=== PATIENT | male | born 1955 | race Caucasian/White ===

== ENCOUNTER 2019-01-02 10:15 | Emergency (ER) | payer OTHER ==
[2019-01-02 10:28] VITALS: BP 142/101; PULSE 72; TEMP 97.8; BMI 21.8
--- NOTE | 2019-01-02 10:53 | PDOC ---
*Physical Exam - Vital Signs Last Vital Signs Temp Pulse Resp BP Pulse Ox 97.8 F 72 16 142/101 H 98 01/02/19 10:21 01/02/19 10:21 01/02/19 10:21 01/02/19 10:21 01/02/19 10:21 Medical Decision Making - Medical Decision Making 01/02/19 10:52 Mr. Bush is a 63 yo M h/o EtOH abuse presents to ED with complaints of right scrotal swelling and discomfort worsened with ambulation for the past 2 years. 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
--- NOTE | 2019-01-02 12:36 | PDOC ---
History of Present Illness - General Chief Complaint: Pain, Acute Stated Complaint: BOIL ON THE ABD Time Seen by Provider: 01/02/19 10:46 History Source: Patient Exam Limitations: No Limitations - History of Present Illness Travel History: No Initial Comments: 01/02/19 11:37 63-year-old male with history of EtOH abuse presents to ED with complaints of right scrotal swelling and discomfort worsened with ambulation for the past 2 years without worsening symptoms. 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 Patient states has not followed up with anyone for the symptoms above and so decided to come to the ER today when he mentioned this to his sister. Timing/Duration: reports: constant Quality: reports: mild Abdominal Pain Onset Location: reports: other Pain Radiation: reports: no radiation Activities at Onset: reports: none Aggravating Factors: improves with: Movement Alleviating Factors: improves with: Rest Past History - Travel Traveled outside of the country in the last 30 days: No Close contact w/someone who was outside of country & ill: No - Past Medical History Allergies/Adverse Reactions: Allergies Allergy/AdvReac Type Severity Reaction Status Date / Time No Known Allergies Allergy Verified 01/02/19 10:28 Home Medications: Ambulatory Orders NK [No Known Home Medication] 01/02/19 - Suicide/Smoking/Psychosocial Hx Smoking History: Current some day smoker Have you smoked in the past 12 months: No Information on smoking cessation initiated: No Hx Alcohol Use: Yes Drug/Substance Use Hx: No Patient Lives Alone: Yes Lives with/in: lives alone Review of Systems - Review of Systems Able to Perform ROS?: Yes Constitutional: No: Symptoms Reported HEENTM: No: Symptoms Reported Respiratory: No: Symptoms reported Cardiac (ROS): No: Symptoms Reported ABD/GI: No: Symptoms Reported : Yes: Testicular Mass, Testicular Swelling Musculoskeletal: No: Symptoms Reported Integumentary: No: Symptoms Reported Neurological: No: Symptoms reported Endocrine: No: Symptoms Reported Hematologic/Lymphatic: No: Symptoms Reported *Physical Exam - Vital Signs Last Vital Signs Temp Pulse Resp BP Pulse Ox 97.8 F 72 16 142/101 H 98 01/02/19 10:21 01/02/19 10:21 01/02/19 10:21 01/02/19 10:21 01/02/19 10:21 - Physical Exam General Appearance: Yes: Nourished, Appropriately Dressed, Alcohol on Breath. No: Apparent Distress Respiratory/Chest: positive: Lungs Clear, Normal Breath Sounds. negative: Respiratory Distress, Accessory Muscle Use Cardiovascular: positive: Regular Rhythm, Regular Rate. negative: Murmur Gastrointestinal/Abdominal: positive: Soft. negative: Tenderness Male Genitalia: positive: other (Noted approximately 10 x 5 cm enlarged soft mass extending from the right suprapubic region rating to his right testicle. Penis intact. No discharge.) Musculoskeletal: negative: CVA Tenderness Extremity: positive: Normal Capillary Refill. negative: Pedal Edema Integumentary: positive: Normal Color, Warm, Moist Neurologic: positive: Motor Strength 5/5 (ambulatory) ED Treatment Course - RADIOLOGY Radiology Studies Ordered: Category Date Time Status SCROTUM AND CONTENTS US [US] Stat Ultrasound 01/02/19 11:02 Ordered SOFT TISSUE ABDOMEN US [US] Stat Ultrasound 01/02/19 11:46 Ordered Medical Decision Making - Medical Decision Making 01/02/19 12:02 Chief complaint. Mass his right testicle worse with movement over the past 2 years without worsening symptoms recently. No follow-up prior to today's visit Exam. Patient with large semi-firm semi-soft mass to right inguinal extending to right testicular region. Testicles nontender no penile drainage Plan: Urine culture and urinalysis and ultrasound 01/02/19 13:46 Laboratory Tests 01/02/19 12:16 Urine Ketones Negative Urine Blood Negative Urine Nitrite Negative Urine Bilirubin Negative Ur Leukocyte Esterase Negative Ultrasound shows a herniating bowel loop with peristalsis. Right epididymal head body and tail measuring 10 8 and 3 mm respectively. The right testicle measures 3.7 x 2.1 with a homogeneous echotexture. Venous spectra waveforms documented no arterial flow could be documented. On the color Doppler images there is significant paucity of the color Doppler flow relative to the left. Small to moderate right hydrocele is present. The left testicle measures 4.2 x 2 with normal color Doppler flow present. Will discuss case with urology in regards to possible right testicular torsion. patient has normal skin color to area, minimal tenderness to right testicle, and symmetric warmth. 01/02/19 14:04 Case discussed with urologist Dr. Hernandez who states since patient has no testicular pain or worsening discomfort over the past 2 years, Pt may f/u w/ surgeon. Consult given *DC/Admit/Observation/Transfer Diagnosis at time of Disposition: Hernia - Discharge Dispostion Disposition: HOME Condition at time of disposition: Good - Referrals Referrals: Helio Fuller MD [Staff Physician] - - Patient Instructions Printed Discharge Instructions: DI for Groin Hernia Additional Instructions: Please call the referred surgeon for consultation. Please avoid lifting items over 10 pounds. Use your legs and avoid lifting items over 10 pounds. If symptoms worsen including severe testicular pain, difficulty urinating, or skin discoloration, please return to the emergency room immediately. Print Language: CYMRAES - Post Discharge Activity
[2019-01-02 12:39] LABS: PH,URINE 7.5 (5.0-8.0); URINE APPEARANCE CLEAR; URINE BILIRUBIN NEGATIVE (NEGATIVE); URINE COLOR YELLOW; URINE GLUCOSE (UA) NEGATIVE (NEGATIVE); URINE KETONE NEGATIVE (NEGATIVE); URINE LEUK ESTERASE NEGATIVE (NEGATIVE); URINE NITRITE NEGATIVE (NEGATIVE); URINE PROTEIN NEGATIVE (NEGATIVE)
== END 2019-01-02 14:13 | disposition home or self-care (01) ==
LOC: JER 10:15
DX: K40.90 Unilateral inguinal hernia, without obstruction or gangrene, not specified as recurrent (principal)
CPT/HCPCS: 76705-TC; 76870-TC; 81003; 87086; 99282-25

== ENCOUNTER 2019-03-28 15:40 | Inpatient (IN) | payer OTHER ==
--- NOTE | 2019-03-28 17:27 | PDOC ---
History of Present Illness - General Chief Complaint: Pain Stated Complaint: GROIN PAIN Time Seen by Provider: 03/28/19 17:26 - History of Present Illness Initial Comments: 03/28/19 18:23 63 y/o M with hx of right inguinal hernia presenting to the ED with right testicular pain. He was seen in the ED 01/02/2019 for the same complaint and scrotal U/S at the time showed decreased Doppler flow, right and left hydrocele and torsion could not be ruled out at the time. He was discharged with instructions to follow up with surgery which he wasn't able to do. This current episode of pain began today and is sharp and non-radiating. Attempts to reduce his hernia have been unsuccessful.He has had 2 episodes of non-bloody emesis since yesterday as well as dysuria. His last bowel movement was yesterday and he denies melena or diarrhea. Past History - Past Medical History Allergies/Adverse Reactions: Allergies Allergy/AdvReac Type Severity Reaction Status Date / Time No Known Allergies Allergy Verified 01/02/19 10:28 Home Medications: Ambulatory Orders NK [No Known Home Medication] 01/02/19 COPD: No - Suicide/Smoking/Psychosocial Hx Smoking History: Current every day smoker Have you smoked in the past 12 months: No Information on smoking cessation initiated: No Hx Alcohol Use: Yes Drug/Substance Use Hx: No Review of Systems - Review of Systems All Other Systems: Reviewed and Negative *Physical Exam - Vital Signs Last Vital Signs Temp Pulse Resp BP Pulse Ox 98.2 F 71 18 139/84 100 03/28/19 16:01 03/28/19 16:01 03/28/19 16:01 03/28/19 16:01 03/28/19 16:01 - Physical Exam General Appearance: Yes: Nourished, Appropriately Dressed Neck: positive: Supple Respiratory/Chest: positive: Lungs Clear, Normal Breath Sounds. negative: Respiratory Distress Gastrointestinal/Abdominal: positive: Normal Bowel Sounds, Soft, Hernia Male Genitalia: positive: inguinal hernia, other (Right sided testicle swollen and hard with what appears to be loops of bowel herniating into scrotal sac. unable to illicit cremasteric reflex bilaterally/reduce hernia). negative: normal genitalia, hematuria Musculoskeletal: positive: Normal Inspection. negative: CVA Tenderness Extremity: positive: Normal Inspection, Normal Range of Motion. negative: Coldness, Cyanosis, Swelling Integumentary: positive: Normal Color, Dry, Warm. negative: Jaundice Neurologic: positive: Fully Oriented, Alert, Normal Mood/Affect, Normal Response ED Treatment Course - LABORATORY CBC & Chemistry Diagram: 03/28/19 18:16 03/28/19 18:16 Medical Decision Making - Medical Decision Making 03/28/19 18:39 63 y/o M hx of right inguinal hernia presenting with right testicular pain. Considering possible incarceration Labs/Imaging/Meds morphine for pain cbc,cmp, lactate, type and screen, coags Dr. Mcnair consulted by Dr. Garces and is coming to see the patient. Did not think scrotal U/S would be necessary due to findings on physical exam and previous ultrasound from January. 03/28/19 20:41 Surgeon has seen patient. Admission request put through to [facility] through [facility]. CT abdomen with IV contrast ordered *DC/Admit/Observation/Transfer Diagnosis at time of Disposition: Hernia, Right inguinal hernia - Discharge Dispostion Condition at time of disposition: Stable Decision to Admit order: Yes - Referrals - Patient Instructions - Post Discharge Activity
[2019-03-28] MEDS ORDERED: morphine CARPU-JECT 4 MG/1 ML DISP.SYRIN IVPUSH ONE (18:22)
[2019-03-28] MEDS ORDERED: SODIUM CHLORIDE 0.9% 1000 ML INFUS.BAG IV ONE (18:22)
--- NOTE | 2019-03-28 18:22 | PDOC ---
Documentation entered by Tahmina Rivero SCRIBE, acting as scribe for Brittany Garces MD. Brittany Garces MD: This documentation has been prepared by the Mat ramos Lincy, SCRIBE, under my direction and personally reviewed by me in its entirety. I confirm that the documentation accurately reflects all work, treatment, procedures, and medical decision making performed by me. Attending Attestation - Resident Resident Name: Pb Jones - ED Attending Attestation I have performed the following: I have examined & evaluated the patient, The case was reviewed & discussed with the resident, I agree w/resident's findings & plan, Exceptions are as noted - HPI HPI: 03/28/19 18:38 The patient is a 63-year-old male with a past medical history significant for a hernia presents to the emergency department with right testicular pain with swelling. The patient reports a 2-year history right inguinal hernia, which protrudes out intermittently. The patient reports hes able to reduce the hernia while laying on the side. The patient reports around noon today the hernia bulged out, and he was unable to reduce it. The patient reports associated symptoms of nausea and 2 episodes of vomiting. The patient reports taking Tylenol for the pain without relief. Denies fever, chills, diarrhea. The patient was seen at the ER on January 2019, and he was referred to surgery. The patient denies follow up secondary to the office being far away. Allergies: NKDA - Physicial Exam PE: 03/28/19 18:19 awake alert lungs clear bilaterally heart rrr no mrg abd soft nt nd ext wwp. right scrotum inlarged. palp hernia, tense. skin overlying no erythema, no warmth. ttp on trying to reduce, unreducable. ext wwp no edema. nuero alert oriented x 3. - Medical Decision Making 03/28/19 18:21 63 yo male with no pmhx h/o inguinal hernia, here with incarcerated inguinal hernia. plan pre op labs, pain control NPO iv hydration lactic acid. pt placed in head down, unable to reduce. will give pain medicaion. surgery consulted. dr jose blanco. awaiting call back. us testicle ordered. ua basic labs. 03/28/19 18:[address] Mcnair. 03/28/19 20:[address] Mcnair, confirmed hernia. [facility]. will obtain cT a/p r/o complications of hernia. Heart Score/ECG Review #1 General ECG Interpretation: Sinus Rhythm, Normal Rate (65), Normal Intervals, No acute ischemic changes
[2019-03-28] MEDS ORDERED: morphine SULFATE 4 MG/ML VIAL ONE (18:28)
[2019-03-28 18:35] LABS: BASO % 0.7 % (0-2.0); EOS % 1.2 % (0-4.5); HEMATOCRIT 36.1 % (35.4-49); HEMOGLOBIN 11.9 GM/dL (11.7-16.9); LYMPH % 21.2 % (8-40); MCH 32.3 pg (25.7-33.7); MCHC 32.9 g/dl (32.0-35.9); MEAN PLT VOLUME 6.6 fl (7.5-11.1); MONO % 8.9 % (3.8-10.2); PLATELET COUNT 341 K/MM3 (134-434); RBC 3.68 M/mm3 (4.00-5.60); RDW 13.3 % (11.9-15.9); WHITE BLOOD COUNT 6.8 K/mm3 (4.0-10.0)
[2019-03-28 18:37] LABS: URINE APPEARANCE CLEAR; URINE BILIRUBIN NEGATIVE (NEGATIVE); URINE COLOR YELLOW; URINE GLUCOSE (UA) NEGATIVE (NEGATIVE); URINE KETONE TRACE (NEGATIVE); URINE LEUK ESTERASE NEGATIVE (NEGATIVE); URINE NITRITE NEGATIVE (NEGATIVE); URINE PROTEIN NEGATIVE (NEGATIVE)
[2019-03-28 18:57] LABS: ALBUMIN 3.3 g/dl (3.4-5.0); BILIRUBIN,TOTAL 0.4 mg/dL (0.2-1); BLOOD UREA NITROGEN 9.6 mg/dL (7-18); CALCIUM 8.6 mg/dL (8.5-10.1); CREATININE 0.6 mg/dL (0.55-1.3); POTASSIUM 3.8 mmol/L (3.5-5.1)
[2019-03-28 19:00] LABS: INR 1.03 (0.83-1.09); PROTHROMBIN TIME (PATIENT) 12.2 SEC (9.7-13.0)
[2019-03-28 19:03] LABS: ACTIVATED PTT 34.5 SECONDS (25.2-36.5)
[2019-03-28] MEDS ORDERED: MORPHINE SULFATE 2 MG/ML VIAL IVPUSH PRN (21:07)
[2019-03-28] MEDS: SODIUM CHLORIDE 1,000 ML IV SCH (21:55)
--- NOTE | 2019-03-29 00:27 | PN ---
Teaching Attending Note Name of Resident: Zee Humphreys ATTENDING PHYSICIAN STATEMENT I saw and evaluated the patient. I reviewed the resident's note and discussed the case with the resident. I agree with the resident's findings and plan as documented. SUBJECTIVE: 63-year-old man with 2 yr history of reducible right inguinal hernia c/o sudden pain 03/28 afternoon and found to have irreducible right inguinal hernia. OBJECTIVE: Last Vital Signs Temp Pulse Resp BP Pulse Ox 98.2 F 75 18 127/78 99 03/29/19 00:07 03/29/19 00:07 03/29/19 00:07 03/29/19 00:07 03/29/19 00:07 gen- nad, aaox3, nontoxic heent- at, nc cv -s1+s2+rrr chest clear abd - soft, nt - right irreducible inguinal hernia Abnormal Lab Results 03/28/19 03/28/19 03/28/19 18:16 18:16 18:16 RBC 3.68 L MCV 98.0 H MPV 6.6 L AST 91 H Albumin 3.3 L Urine Ketones Trace H ct scan abd/pelvis appreciated ASSESSMENT AND PLAN: #right irreducible inguinal hernia. Lactate was normal so do not suspect ischemic bowel. Evaluated by Dr. Mcnair. Patient is for urgent surgery. -admit to med/surg -npo -pain control- morphine -pt/ptt -coags -iv fluid hydration -ekg -lactate -scrotal u/s -dvt ppx- scds
--- NOTE | 2019-03-29 04:02 | HP ---
CHIEF COMPLAINT: irreducible inguinal hernia , n/v PCP: HISTORY OF PRESENT ILLNESS: 63 yo M w/ no reported PMH presents to the ED with R testicular pain. Pt has had this inguinal hernia for over 2 years. Pt states whenever he experiences pain and notices the bulging, he massages his scrotum to reduce his hernia. Today, around 2 pm he noticed he was unable to reduce his hernia. The pt also endorses severe pain, nausea, and vomiting. The patient states he is unable to rate his pain because it keeps changing in severity. Pt tried taking over the counter tylenol for the pain without relief. Pt has been seen in the ED in 01/2019 and but has failed outpt f/u. ER course was notable for: (1)CT abdomen (2)pain management (3) Recent Travel: denies PAST MEDICAL HISTORY:denies PAST SURGICAL HISTORY: denies Social History: Smoking:denies Alcohol:denies Drugs: denies Family History: Allergies No Known Allergies Allergy (Verified 01/02/19 10:28) HOME MEDICATIONS: Home Medications Medication Instructions Recorded NK [No Known Home Medication] 01/02/19 REVIEW OF SYSTEMS CONSTITUTIONAL: Absent: fever, chills, diaphoresis, generalized weakness, malaise, loss of appetite, weight change HEENT: Absent: rhinorrhea, nasal congestion, throat pain, throat swelling, difficulty swallowing, mouth swelling, ear pain, eye pain, visual changes CARDIOVASCULAR: Present: irregular heart rate Absent: chest pain, syncope, palpitations, lightheadedness, peripheral edema RESPIRATORY: Absent: cough, shortness of breath, dyspnea with exertion, orthopnea, wheezing, stridor, hemoptysis GASTROINTESTINAL: Present: Nausea, vomiting Absent: abdominal pain, abdominal distension, diarrhea, constipation, melena, hematochezia GENITOURINARY: Present: Scrotal pain Absent: dysuria, frequency, urgency, hesitancy, hematuria, flank pain MUSCULOSKELETAL: Absent: myalgia, arthralgia, joint swelling, back pain, neck pain HEMATOLOGIC/IMMUNOLOGIC: Absent: easy bleeding, easy bruising, lymphadenopathy, frequent infections ENDOCRINE: Absent: unexplained weight gain, unexplained weight loss, heat intolerance, cold intolerance NEUROLOGIC: Absent: headache, focal weakness or paresthesias, dizziness, unsteady gait, seizure, mental status changes, bladder or bowel incontinence PSYCHIATRIC: Absent: anxiety, depression, suicidal or homicidal ideation, hallucinations. PHYSICAL EXAMINATION Vital Signs - 24 hr 03/28/19 03/29/19 16:01 00:07 Temperature 98.2 F 98.2 F Pulse Rate 71 Pulse Rate [ 75 Right Radial] Respiratory 18 18 Rate Blood Pressure 139/84 Blood Pressure 127/78 [Left Arm] O2 Sat by Pulse 100 99 Oximetry (%) GENERAL: Awake, alert, and fully oriented, in no acute distress. HEAD: Normal with no signs of trauma. EYES: Pupils equal, round and reactive to light, extraocular movements intact, sclera anicteric, conjunctiva clear. No lid lag. EARS, NOSE, THROAT: Ears normal, nares patent, oropharynx clear without exudates. Moist mucous membranes. NECK: Normal range of motion, supple without lymphadenopathy, JVD, or masses. LUNGS: Breath sounds equal, clear to auscultation bilaterally. No wheezes, and no crackles. No accessory muscle use. HEART: Regular rate and rhythm, normal S1 and S2 without murmur, rub or gallop. ABDOMEN: Soft, nontender, not distended, normoactive bowel sounds, no guarding, no rebound, no masses. :Scrotum enlarged, R irreducible inguinal hernia. UPPER EXTREMITIES: 2+ pulses, warm, well-perfused. No cyanosis. No clubbing. No peripheral edema. LOWER EXTREMITIES: 2+ pulses, warm, well-perfused. No calf tenderness. No peripheral edema. NEUROLOGICAL: Cranial nerves II-XII intact. Normal speech. SKIN: Warm, dry, normal turgor, no rashes or lesions noted, normal capillary refill. Laboratory Last Values WBC 6.8 K/mm3 (4.0-10.0) 03/28/19 18:16 RBC 3.68 M/mm3 (4.00-5.60) L 03/28/19 18:16 Hgb 11.9 GM/dL (11.7-16.9) 03/28/19 18:16 Hct 36.1 % (35.4-49) 03/28/19 18:16 MCV 98.0 fl (80-96) H 03/28/19 18:16 MCH 32.3 pg (25.7-33.7) 03/28/19 18:16 MCHC 32.9 g/dl (32.0-35.9) 03/28/19 18:16 RDW 13.3 % (11.9-15.9) 03/28/19 18:16 Plt Count 341 K/MM3 (134-434) 03/28/19 18:16 MPV 6.6 fl (7.5-11.1) L 03/28/19 18:16 Absolute Neuts (auto) 4.6 K/mm3 (1.5-8.0) 03/28/19 18:16 Neutrophils % 68.0 % (42.8-82.8) 03/28/19 18:16 Lymphocytes % 21.2 % (8-40) 03/28/19 18:16 Monocytes % 8.9 % (3.8-10.2) 03/28/19 18:16 Eosinophils % 1.2 % (0-4.5) 03/28/19 18:16 Basophils % 0.7 % (0-2.0) 03/28/19 18:16 Nucleated RBC % 0 % (0-0) 03/28/19 18:16 PT with INR 12.20 SEC (9.7-13.0) 03/28/19 18:16 INR 1.03 (0.83-1.09) 03/28/19 18:16 PTT (Actin FS) 34.5 SECONDS (25.2-36.5) 03/28/19 18:16 Sodium 142 mmol/L (136-145) 03/28/19 18:16 Potassium 3.8 mmol/L (3.5-5.1) 03/28/19 18:16 Chloride 106 mmol/L (98-107) 03/28/19 18:16 Carbon Dioxide 28 mmol/L (21-32) 03/28/19 18:16 Anion Gap 9 MMOL/L (8-16) 03/28/19 18:16 BUN 9.6 mg/dL (7-18) 03/28/19 18:16 Creatinine 0.6 mg/dL (0.55-1.3) 03/28/19 18:16 Est GFR (CKD-EPI)AfAm 124.02 03/28/19 18:16 Est GFR (CKD-EPI)NonAf 107.00 03/28/19 18:16 Random Glucose 95 mg/dL (74-106) 03/28/19 18:16 Lactic Acid 2.0 mmol/L (0.4-2.0) 03/28/19 18:16 Calcium 8.6 mg/dL (8.5-10.1) 03/28/19 18:16 Total Bilirubin 0.4 mg/dL (0.2-1) 03/28/19 18:16 AST 91 U/L (15-37) H 03/28/19 18:16 ALT 31 U/L (13-61) 03/28/19 18:16 Alkaline Phosphatase 107 U/L (45-117) 03/28/19 18:16 Total Protein 7.0 g/dl (6.4-8.2) 03/28/19 18:16 Albumin 3.3 g/dl (3.4-5.0) L 03/28/19 18:16 Urine Color Yellow 03/28/19 18:16 Urine Appearance Clear 03/28/19 18:16 Urine pH 6.0 (5.0-8.0) 03/28/19 18:16 Ur Specific [place] 1.021 (1.010-1.035) 03/28/19 18:16 Urine Protein Negative (NEGATIVE) 03/28/19 18:16 Urine Glucose (UA) Negative (NEGATIVE) 03/28/19 18:16 Urine Ketones Trace (NEGATIVE) H 03/28/19 18:16 Urine Blood Negative (NEGATIVE) 03/28/19 18:16 Urine Nitrite Negative (NEGATIVE) 03/28/19 18:16 Urine Bilirubin Negative (NEGATIVE) 03/28/19 18:16 Urine Urobilinogen 1.0 mg/dL (0.2-1.0) 03/28/19 18:16 Ur Leukocyte Esterase Negative (NEGATIVE) 03/28/19 18:16 Blood Type A POSITIVE 03/28/19 18:16 Antibody Screen Negative 03/28/19 18:16 CT abdomen/Pelvis: A right inguinoscrotal hernia is seen containing a dilated small bowel loop. The herniated small bowel loop appears to demonstrate mild concentric wall thickening which could be on the basis of ischemia or vascular congestion. A dilated obstructed small bowel loop is seen within the right pelvis secondary to the previously noted hernia. A small amount of pelvic free fluid is visualized. Diffuse hepatic steatosis. Small nonobstructing bilateral renal calculi. Possible lingular pulmonary nodule. Correlation with nonemergent chest CT is suggested. ASSESSMENT/PLAN: 63 yo M w/ no reported PMH presents to the ED with R sided scrotal pain, nausea and vomiting. The pt is admitted for irreducible inguinal hernia. Pt going to OR tomorrow R Inguinal hernia -PT has bulging and swelling of Scrotum. pt has r sided inguinal hernia, unable to reduce. -case discussed with Surgery, OR tomorrow -c/w morphine 2mg q6 for pain control -scrotal U/S deferred at this point, last U/S in 01/19 reviewed. recommending urology f/u -lactate 2.0 -CT abdomen/ Pelvis: see above F/E/N -IVF @ 100mls/hr -NPO DVT ppx: SCDs Dispo: admit to medicine floor for medical optimization . for surgery. Visit type - Emergency Visit Emergency Visit: Yes ED Registration Date: 03/28/19 Care time: The patient presented to the Emergency Department on the above date and was hospitalized for further evaluation of their emergent condition. - New Patient This patient is new to me today: Yes Date on this admission: 03/29/19 - Critical Care Critical Care patient: No ATTENDING PHYSICIAN STATEMENT I saw and evaluated the patient. I reviewed the resident's note and discussed the case with the resident. I agree with the resident's findings and plan as documented. SUBJECTIVE: OBJECTIVE: ASSESSMENT AND PLAN:
[2019-03-29 04:14] VITALS: BMI 17.9
[2019-03-29] MEDS: SODIUM CHLORIDE 1,000 ML IV SCH (04:23)
--- NOTE | 2019-03-29 08:21 | CONSULT ---
- Consultation REQUESTING PROVIDER: Mili PATEL CONSULT REQUEST: We have been asked to surgically evaluate this patient for an incarcerated right inguinal hernia. PCP:Silvia Neves HISTORY OF PRESENT ILLNESS: SOBIAP who is a 63 y/o male who presented w/ a non reducible right groin mass for 2 days; he has a known reducible right inguinal hernia a/t him. He was at work when this happened; he as no n/v and NOC. D/w him in [place]ian and w/his family member Nelida. PMHx: none known PSHx: none known Home Medications Medication Instructions Recorded NK [No Known Home Medication] 01/02/19 Allergies Allergy/AdvReac Type Severity Reaction Status Date / Time No Known Allergies Allergy Verified 01/02/19 10:28 REVIEW OF SYSTEMS: CONSTITUTIONAL: Absent: fever, chills, diaphoresis, generalized weakness, malaise, loss of appetite, weight change CARDIOVASCULAR: Absent: chest pain, syncope, palpitations, irregular heart rate, lightheadedness , peripheral edema RESPIRATORY: Absent: cough, shortness of breath, dyspnea with exertion, wheezing, stridor, hemoptysis GASTROINTESTINAL: Absent: abdominal pain, abdominal distension, nausea, vomiting, diarrhea, constipation, melena, hematochezia GENITOURINARY: Absent: dysuria, frequency, urgency, hesitancy, hematuria, flank pain, genital pain MUSCULOSKELETAL: Absent: myalgia, arthralgia, joint swelling, back pain, neck pain SKIN: Absent: rash, itching, pallor HEMATOLOGIC/IMMUNOLOGIC: Absent: easy bleeding, easy bruising, lymphadenopathy NEUROLOGIC: Absent: headache, focal weakness, paresthesias, dizziness, unsteady gait, seizure, mental status changes, bladder or bowel incontinence PSYCHIATRIC: Absent: anxiety, depression, suicidal or homicidal ideation, hallucinations. PHYSICAL EXAM: GENERAL: Awake, alert, and fully oriented, in no acute distress. HEAD: Normal with no signs of trauma. EYES: PERRL, sclera anicteric, conjunctiva clear. NECK: Normal ROM, supple without lymphadenopathy, JVD, or masses. LUNGS: Clear to auscultation bilat anteriorly. No wheezes, and no crackles. No accessory muscle use. HEART: Regular rate and rhythm. No murmurs ABDOMEN: Soft, nontender, not distended, normoactive bowel sounds, no guarding, no rebound, no masses. No organomegaly. Incarcerated RIH; no LIH; right testicle not appreciated; left testicle present. MUSCULOSKELETAL: Normal ROM at all joints. No bony deformities or tenderness. No CVA tenderness. UPPER EXTREMITIES: 2+ pulses, warm, well-perfused. No cyanosis. Cap refill <2 seconds. No peripheral edema. LOWER EXTREMITIES: 2+ pulses, warm, well-perfused. No calf tenderness. No peripheral edema. NEUROLOGICAL: Normal speech, gait not observed. PSYCH: Cooperative. Good eye contact. Appropriate mood and affect. SKIN: Warm, dry, normal turgor, no rashes or lesions noted. Vital Signs Temperature 98.8 F 03/29/19 04:05 Pulse Rate 70 03/29/19 04:05 Respiratory Rate 18 03/29/19 04:05 Blood Pressure 131/76 03/29/19 04:05 O2 Sat by Pulse Oximetry (%) 98 03/29/19 04:05 Lab Results WBC 6.8 K/mm3 (4.0-10.0) 03/28/19 18:16 RBC 3.68 M/mm3 (4.00-5.60) L 03/28/19 18:16 Hgb 11.9 GM/dL (11.7-16.9) 03/28/19 18:16 Hct 36.1 % (35.4-49) 03/28/19 18:16 MCV 98.0 fl (80-96) H 03/28/19 18:16 MCHC 32.9 g/dl (32.0-35.9) 03/28/19 18:16 RDW 13.3 % (11.9-15.9) 03/28/19 18:16 Plt Count 341 K/MM3 (134-434) 03/28/19 18:16 Sodium 142 mmol/L (136-145) 03/28/19 18:16 Potassium 3.8 mmol/L (3.5-5.1) 03/28/19 18:16 Chloride 106 mmol/L (98-107) 03/28/19 18:16 Carbon Dioxide 28 mmol/L (21-32) 03/28/19 18:16 Anion Gap 9 MMOL/L (8-16) 03/28/19 18:16 BUN 9.6 mg/dL (7-18) 03/28/19 18:16 Creatinine 0.6 mg/dL (0.55-1.3) 03/28/19 18:16 Random Glucose 95 mg/dL (74-106) 03/28/19 18:16 Calcium 8.6 mg/dL (8.5-10.1) 03/28/19 18:16 Blood Type A POSITIVE 03/28/19 18:16 Antibody Screen Negative 03/28/19 18:16 INR 1.03 (0.83-1.09) 03/28/19 18:16 CT scan a/p reviewed. IMP: incarcerated right inguinal hernia PLAN: For RIH repair; possible mesh; possible sb resection; r/b/t/a's d/w the patient in [place]ian and w/his family member Nelida. Wesley Mcnair MD FACS
[2019-03-29 08:24] LABS: BASO % 0.8 % (0-2.0); EOS % 1.6 % (0-4.5); HEMATOCRIT 34.6 % (35.4-49); HEMOGLOBIN 11.6 GM/dL (11.7-16.9); LYMPH % 24.3 % (8-40); MCH 32.5 pg (25.7-33.7); MCHC 33.5 g/dl (32.0-35.9); MEAN CELL VOLUME 97.1 fl (80-96); MEAN PLT VOLUME 7.1 fl (7.5-11.1); MONO % 12.4 % (3.8-10.2); NEUT % 60.9 % (42.8-82.8); PLATELET COUNT 355 K/MM3 (134-434); RBC 3.57 M/mm3 (4.00-5.60); RDW 13.3 % (11.9-15.9); WHITE BLOOD COUNT 6.2 K/mm3 (4.0-10.0)
[2019-03-29 08:38] LABS: BLOOD UREA NITROGEN 7.3 mg/dL (7-18); CALCIUM 8.1 mg/dL (8.5-10.1); CREATININE 0.5 mg/dL (0.55-1.3); MAGNESIUM 1.6 mg/dL (1.8-2.4); PHOSPHOROUS 3.6 mg/dL (2.5-4.9); POTASSIUM 3.7 mmol/L (3.5-5.1)
[2019-03-29] MEDS ORDERED: PROPOFOL 20 ML ONE ×2 (09:00→10:26)
[2019-03-29] MEDS ORDERED: ROCURONIUM BROMIDE 50 MG/5 ML SYRINGE ONE (09:00)
[2019-03-29] MEDS ORDERED: fentaNYL CITRATE 250 MCG/5 ML VIAL ONE (09:00)
[2019-03-29] MEDS ORDERED: MIDAZOLAM HCL 2 MG/2 ML SINGLE DOSE VIAL ONE (09:01)
[2019-03-29] MEDS ORDERED: BUPIVACAINE HCL/PF 0.5% (5MG/ML) 10 ML VIAL ONE (09:02)
[2019-03-29] MEDS ORDERED: ceFAZolin SODIUM 1 GM VIAL IVPB ONE (09:27)
[2019-03-29] MEDS ORDERED: DEXAMETHASONE SOD PHOSPHATE 4 MG/1 ML VIAL ONE (09:30)
[2019-03-29] MEDS ORDERED: ceFAZolin SODIUM 1 GM VIAL ONE (09:30)
[2019-03-29] MEDS ORDERED: KETOROLAC TROMETHAMINE 30 MG/1 ML VIAL ONE (09:30)
[2019-03-29] MEDS ORDERED: NEOSTIGMINE METHYLSULFATE 0.5 MG/ML - 10 ML MDV ONE (09:36)
[2019-03-29] MEDS ORDERED: PHENYLEPHRINE HCL 10 MG/1 ML SINGLE DOSE VIAL ONE (09:36)
[2019-03-29] MEDS ORDERED: BUPIVACAINE HCL/PF 0.5% (5MG/ML) 10 ML VIAL IJ ONE ×2 (09:36)
[2019-03-29] MEDS ORDERED: GLYCOPYRROLATE 0.2 MG/1 ML VIAL ONE (09:37)
[2019-03-29] MEDS ORDERED: HYDROmorphone HCl 2 MG/ML VIAL ONE (09:56)
[2019-03-29] MEDS ORDERED: BENZOIN TINCTURE SWABSTICK TP ONE (10:37)
[2019-03-29] MEDS ORDERED: oxyCODONE HCL 5 MG TABLET PO PRN ×2 (10:51)
[2019-03-29] MEDS ORDERED: ONDANSETRON 4 MG/2 ML VIAL IVPUSH PRN (10:56)
[2019-03-29] MEDS ORDERED: LACTATED RINGERS SOLUTION 1,000 ML IV SCH (11:00)
[2019-03-29] MEDS ORDERED: SODIUM CHLORIDE 1,000 ML IV SCH (11:10)
--- NOTE | 2019-03-29 11:15 | OP ---
Operative Note - Note: Operative Date: 03/29/19 Pre-Operative Diagnosis: incarcerated right inguinal hernia Operation: repair incarcerated right inguinal hernia w/mesh Findings: hernia reduced at induction; no bloody peritoneal fluid. Post-Operative Diagnosis: Same as Pre-op Surgeon: Wesley Mcnair Patient Navigator: Laura Lowry Anesthesiologist/FARM EQUIPMENT ENGINE MECHANIC: Iam Purcell Anesthesia: General Specimens Removed: hernia sac Estimated Blood Loss (mls): 15
--- NOTE | 2019-03-29 11:25 | PN ---
HC Provider Note Provider Note: Anesthesia Note Pt s/p GA for inguinal hernia repair In PACU left eye noted to be red and inflamed --after being flushed with saline eye continues to be irritated D/W Dr. Glenn Wright (ophthamology labour market economist) recommended artificial tears and ointment(with or without antibiotic) on continuously overnight. Ointment ordered for q4H application. Jose Alberto Purcell.
[2019-03-29] MEDS ORDERED: MINERAL OIL/PETROLATUM,WHITE 3.5 GM TUBE ONE (11:33)
[2019-03-29] MEDS: MINERAL OIL/PETROLATUM,WHITE 3.5 GM TUBE OS SCH ×4 (13:03→23:50)
[2019-03-29] MEDS: ACETAMINOPHEN 500 MG TABLET (FP) PO SCH ×2 (13:33→21:40)
--- NOTE | 2019-03-29 14:50 | PN ---
Progress Note (short form) - Note Progress Note: asymptomatic. states pain is controlled. sitting in bed eating lunch. denies CP , SOB, fever, chills, N/V/c/D Current Medications Generic Name Dose Route Start Last Admin Trade Name Freq PRN Reason Stop Dose Admin Acetaminophen 1,000 mg 03/29/19 13:00 03/29/19 13:33 Tylenol - PO 03/30/19 13:01 1,000 mg Q8H KELSEA Administration Artificial Tears 1 applic 03/29/19 11:30 03/29/19 13:03 Artificial Tears Ointment - OS 03/30/19 12:00 Not Given Q4H KELSEA Sodium Chloride 1,000 mls @ 100 mls/hr 03/29/19 11:10 03/29/19 12:14 Normal Saline - IV 400 mls ASDIR KELSEA Administration Ondansetron HCl 4 mg 03/29/19 10:56 Zofran Injection IVPUSH Q6H PRN NAUSEA AND/OR VOMITING Oxycodone HCl 5 mg 03/29/19 10:51 Roxicodone - PO Q4H PRN PAIN LEVEL 1-5 Oxycodone HCl 10 mg 03/29/19 10:51 Roxicodone - PO Q4H PRN PAIN LEVEL 6-10 Last Vital Signs Temp Pulse Resp BP Pulse Ox 98.0 F 59 L 18 115/71 100 03/29/19 13:53 03/29/19 13:53 03/29/19 13:53 03/29/19 13:53 03/29/19 13:49 General NAD HEENT erythema and increased lacrimation of L eye CV S1 S2 RRR no murmur/rub/gallop Lungs CTA B/L no wheezing/rales/rhonchi Abdomen soft NT/ND surgical dressing in RLQ is c/d/i Extremiteis no pedal edema CBCD WBC 6.2 K/mm3 (4.0-10.0) 03/29/19 07:20 RBC 3.57 M/mm3 (4.00-5.60) L 03/29/19 07:20 Hgb 11.6 GM/dL (11.7-16.9) L 03/29/19 07:20 Hct 34.6 % (35.4-49) L 03/29/19 07:20 MCV 97.1 fl (80-96) H 03/29/19 07:20 MCHC 33.5 g/dl (32.0-35.9) 03/29/19 07:20 RDW 13.3 % (11.9-15.9) 03/29/19 07:20 Plt Count 355 K/MM3 (134-434) 03/29/19 07:20 MPV 7.1 fl (7.5-11.1) L 03/29/19 07:20 CMP Sodium 140 mmol/L (136-145) 03/29/19 07:20 Potassium 3.7 mmol/L (3.5-5.1) 03/29/19 07:20 Chloride 104 mmol/L (98-107) 03/29/19 07:20 Carbon Dioxide 30 mmol/L (21-32) 03/29/19 07:20 Anion Gap 6 MMOL/L (8-16) L 03/29/19 07:20 BUN 7.3 mg/dL (7-18) 03/29/19 07:20 Creatinine 0.5 mg/dL (0.55-1.3) L 03/29/19 07:20 Calcium 8.1 mg/dL (8.5-10.1) L 03/29/19 07:20 Total Bilirubin 0.4 mg/dL (0.2-1) 03/28/19 18:16 AST 91 U/L (15-37) H 03/28/19 18:16 ALT 31 U/L (13-61) 03/28/19 18:16 Alkaline Phosphatase 107 U/L (45-117) 03/28/19 18:16 Total Protein 7.0 g/dl (6.4-8.2) 03/28/19 18:16 Albumin 3.3 g/dl (3.4-5.0) L 03/28/19 18:16 A/P 63yo M with no PMH presented to the ER ith abdominal pain and found to have incarcerated R inguinal hernia 1. Incarcerated R inguinal hernia- s/p hernia reduced with repair with Mesh today. tolerated diet. pain control. will f/u surgery recommendations 2. L conjunctivitis- optho consulted. will f/u recommendations 3. spoke with niece present at bedside. all questions answered. Anticipate discharge tomorrow with surgery f/u as outpatient Visit type - Emergency Visit Emergency Visit: Yes ED Registration Date: 03/28/19 Care time: The patient presented to the Emergency Department on the above date and was hospitalized for further evaluation of their emergent condition. - New Patient This patient is new to me today: Yes Date on this admission: 03/29/19 - Critical Care Critical Care patient: No - Discharge Referral Referred to [facility] Med [facility].C[facility] No
[2019-03-30] MEDS: MINERAL OIL/PETROLATUM,WHITE 3.5 GM TUBE OS SCH ×2 (03:40→09:07)
[2019-03-30] MEDS: ACETAMINOPHEN 500 MG TABLET (FP) PO SCH (05:03)
--- NOTE | 2019-03-30 07:24 | PN ---
HC Provider Note Provider Note: Anesthesia Post Op Note Pt seen s/p GA for inguinal hernia repair Pt reports doing well, no pain in L eye after ointment application overnight for possible corneal abrasion. Denies n/v, urinary retention Ambulating VSS no apparent anesthesia complications Jose Alberto Purcell.
[2019-03-30 09:41] VITALS: BP 128/75; PULSE 69; TEMP 98.9
--- NOTE | 2019-03-30 10:42 | EKG ---
Test Reason : Blood Pressure : / mmHG Vent. Rate : 065 BPM Atrial Rate : 065 BPM P-R Int : 152 ms QRS Dur : 092 ms QT Int : 446 ms P-R-T Axes : 052 -03 057 degrees QTc Int : 463 ms NORMAL SINUS RHYTHM INCOMPLETE RIGHT BUNDLE BRANCH BLOCK BORDERLINE ECG NO PREVIOUS ECGS AVAILABLE Confirmed by DE MORRIS MD ([id number]) on 03/30/2019 10:41:46 AM Referred By: Confirmed By:DE MORRIS MD
--- NOTE | 2019-03-30 11:19 | SURG ---
Surgery Splicing Supervisor Note Splicing Supervisor: Laura Lowry PA-C Date of Service: 03/29/19 Diagnosis: incarcerated right inguinal hernia Procedure: repair incarcerated right inguinal hernia w/mesh I was present for the entirety of the operative procedure. For further detail, please refer to operative report. Visit type - Case Type Case Type: ED Admission - Emergency Emergency Visit: Yes ED Registration Date: 03/28/19 Care time: The patient presented to the Emergency Department on the above date and was hospitalized for further evaluation of their emergent condition. - New patient This patient is new to me today: Yes Date on this admission: 03/29/19
[2019-03-30] MEDS ORDERED: PT OWN MED DRAWER 7, Y5N ONE (11:31)
--- NOTE | 2019-03-30 11:43 | PN ---
Progress Note (short form) - Note Progress Note: Attending Surgeon POD#1 No c/o; voided and tolerated diet VSS AF incision-c/d/i; abdomen soft; genitalia are normal IMP: doing well PLAN: D/C to office f/u in the accompaniment of his family member Nelida. Wesley Mcnair MD FACS
--- NOTE | 2019-03-30 11:45 | PN ---
Teaching Attending Note Name of Resident: Alexa French ATTENDING PHYSICIAN STATEMENT I saw and evaluated the patient. I reviewed the resident's note and discussed the case with the resident. I agree with the resident's findings and plan as documented. SUBJECTIVE:mild tenderness at surgical site which improved with pain medication.denies Cp, SOB, fever, chills, n/v/C/D tolerating diet. no BM OBJECTIVE: Last Vital Signs Temp Pulse Resp BP Pulse Ox 98.9 F 69 18 128/75 100 03/30/19 09:00 03/30/19 09:00 03/30/19 09:00 03/30/19 09:00 03/30/19 09:00 General NAd abdomen soft tender surrounding RLQ surgical dressing which is c/d/i ASSESSMENT AND PLAN: 63yo M with no PMH presented to the ER ith abdominal pain and found to have incarcerated R inguinal hernia 1. Incarcerated R inguinal hernia- s/p hernia reduced with repair with Mesh . tolerating diet. pain is controlled. further recommendations per surgery and wound care. 2. L conjunctivitis- ointment Q4H as per optho recommendations and outpatient follow up. pt has scheduled surgery for the eye 3. awaiting surgery eval and then cee vallejo be cleared for discharge.
--- NOTE | 2019-03-30 15:06 | DS ---
Physical Exam: SUBJECTIVE: Patient seen and examined at bedside. Endorses mild discomfort in R groin, however has been ambulating with ease. Looking forward to going home. OBJECTIVE: Vital Signs Period Temp Pulse Resp BP Sys/Bedoya Pulse Ox Last 24 Hr 97.5 F-98.9 F 62-69 18-18 100-135/60-75 100 PHYSICAL EXAM GENERAL: AAO x 3. in NAD HEENT: NCAT RESP: CTA b/l. good inspiratory effort ABDOMEN: nontender, nondistended. +R groin - clean dressing, intact. mild TTP over area LE: 2+ pt pulses, without edema NEURO: cash poster 2-12 grossly intact LABS CBC 03/28/19 03/29/19 18:16 07:20 WBC 6.8 6.2 Hgb 11.9 11.6 L Hct 36.1 34.6 L Plt Count 341 355 Additional Labs 03/28/19 03/28/19 03/28/19 18:16 18:16 18:16 Sodium 142 Potassium 3.8 Chloride 106 Carbon Dioxide 28 BUN 9.6 Creatinine 0.6 Lactic Acid 2.0 Albumin 3.3 L Urine Glucose (UA) Negative Urine Ketones Trace H Urine Blood Negative Urine Nitrite Negative 03/29/19 07:20 Sodium 140 Potassium 3.7 Chloride 104 Carbon Dioxide 30 BUN 7.3 Creatinine 0.5 L Lactic Acid Microbiology 03/28/19 18:16 Urine - Urine Clean Catch Urine Culture - Final NO GROWTH OBTAINED Imaging 03/28/19: CXR: increased markings in the R mid and lower lung field which could represent an early infiltrate. normal mediastinum. slight rotation to the left 03/28/19: CTAP: a right inguinoscrotal hernia is seen containing a dilated small bowel loop. the herniated small bowel loop appears to demonstrate mild concentric wall thickening which could be on the basis of ischemia or vascular congestion. HOSPITAL COURSE: Date of Admission:03/28/19 Date of Discharge: 03/30/19 Admit diagnosis: incarcerated R inguinal hernia 63 y/o M without PMH who presented to the ED with R testicular pain. Pt had a known inguinal hernia for over 2 years. Pt stated that whenever he experienced pain and noticed that his hernia was bulging, he would press on he region and reduce his hernia. On DOA, he noticed that he was unable to reduce his hernia. During this time, he endorsed severe pain and multiple episodes of NBNB emesis. Pt was seen in the ED in 01/2019 and but has failed outpt f/u. He denied other sx ; without fever, chills, SOB, chest pain or pressure or changes in urinary or bowel function. Pt underwent sx with Dr. Mcnair for incarcerated R inguinal hernia - Repair w/ mesh. Was completed on 03/30/19. Sent home with surgical f/u. During this time, pt also was noted to have ?conjunctivitis vs. keratoconjunctivitis. also w/ possible cataract. was recommended optho f/u and d/c home with artificial tears. Minutes to complete discharge: 45 Discharge Summary Reason For Visit: GROIN PAIN Condition: Stable - Instructions Diet, Activity, Other Instructions: You were in the hospital because you had hernia surgery. Please follow the instructions below from the surgeon. While here, you were also found to have irritation in your left eye. Please follow with the eye doctor below. Medications You may take Tylenol 650mg every 6 hours as needed for pain. You may continue to use the artificial tears eye drops in both of your eyes, every four hours. Follow up: Please follow up with the following doctors : 1. Dr. Mcnair, surgeon - 1 week 2. An eye doctor, Dr. Jay - 1 week 3. A primary care physician, Dr. Adorno - 1 week. We are giving you a referral. If you develop chest pain or shortness of breath, please go to the hospital. Dr. Mcnair Discharge Instructions Dear BOSTON MARIE, Post Operative Instructions Physical activity Resume your normal everyday activity as tolerated no heavy lifting or exercise until seen by your surgeon. You may walk unlimited amounts of and climb stairs. You may resume driving the car when you feel safe and comfortable behind the wheel. Wound care If you have a bandage, leave it on, and keep dry for 48 - 72 hours. After that time discard the outer bandage. If there are tapes on the skin under the outer bandage, leave them in place. They will peel off in the next 7 to 10 days. Do Not peel them off. You may shower 2 days after surgery. If there are tapes present on the skin, they can get wet. Diet There are no dietary restrictions. Eat healthy, high-fiber foods. Drink 6 to 8 glasses of liquid each day. This will assist in keeping your bowels are regular. Pain management You may take Tylenol or acetaminophen for pain. Any pain prescription medication ordered should be taken as prescribed for moderate to severe pain. Call Dr. Mcnair for any of the following: Severe pain not relieved by medication Fever of 101 or higher Excessive bleeding or drainage on dressing Inability to urinate Call the office at [phone] for a post operative appointment in 7 - 10 days. Referrals: Albaro Adorno MD [Staff Physician] - 1 Week Wesley Mcnair MD [Staff Physician] - 1 Week Glenn Wright MD [Staff Physician] - 1 Week Disposition: HOME - Home Medications Comprehensive Discharge Medication List: Ambulatory Orders Mineral Oil/Petrolatum,White [Artificial Tears Ointment -] 1 applic OS Q4H #1 tube 03/30/19 This patient is new to me today: No Emergency Visit: No Critical Care patient: No - Discharge Referral Referred to [facility] Med [facility].: No
--- NOTE | 2019-04-01 11:49 | OP ---
DATE OF OPERATION: 03/29/2019 PREOPERATIVE DIAGNOSIS: Incarcerated right inguinal hernia. POSTOPERATIVE DIAGNOSIS: Incarcerated right inguinal hernia. PROCEDURE: Repair of incarcerated right inguinal hernia with mesh. SURGEON: Wesley Mcnair MD SERVICES MGR: Laura Lowry PA-C ANESTHESIA: General. OPERATIVE FINDINGS: There was a clinical incarcerated right inguinal hernia preoperatively, and this was confirmed with imaging. At the time of surgery during induction, the hernia reduced. The findings at the time of surgery were an indirect inguinal hernia with a weak floor, and there were no hernia contents within the sac at the time of surgery and no evidence of any bloody peritoneal fluid. The rest of the findings were unremarkable. DESCRIPTION OF PROCEDURE: The patient was placed on the operating table in the supine position, and after the induction of general anesthesia, the patients abdomen was prepped with ChloraPrep and draped in sterile fashion. A time-out was taken , and the right groin incision mapped out. Incision was made with a scalpel and taken down through skin and subcutaneous tissue and Scarpas fascia. The external oblique fascia was divided proximally and distally in the direction of its fibers and through the external ring. The cord structures were elevated at the level of the pubic tubercle, and the Mohawk drain placed around them for retraction and identification purposes. There was evidence of edema from the incarcerated hernia, which it has been reduced during induction spontaneously. The sac was identified within the substance of the cord and dissected up to the internal ring, where it was opened, and the previously noted findings were observed. High ligation was carried out with 2-0 Vicryl suture and redundant sac was excised and sent for pathological examination. The floor of the inguinal canal was then repaired by fashioning a piece of Parietex ProGrip Mesh into the inguinal canal and anchoring it at the pubic tubercle, the shelving edge, and conjoint tendon respectively with interrupted 2-0 Prolene. A keyhole was created for the cord structures and the tails of the mesh brought above the level of the internal ring and crossed and anchored there with interrupted 2 -0 Prolene. Hemostasis was checked for and noted to be good, and then, the wound was copiously irrigated with normal saline. Hemostasis was again verified, and then, the cord structures and nerve were returned to their normal anatomic position, and the external oblique fascia closed over then using continuous 2-0 Vicryl recreating the external ring. Scarpas fascia was reapproximated with an interrupted 2-0 Vicryl , the deep dermis with interrupted 3-0 Vicryl, and the skin edges with 4-0 Monocryl in a subcuticular continuous fashion. Steri-Strips and dry sterile dressings were placed, and the procedure terminated at this point, and the patient roused from general anesthesia and transferred to the post-anesthesia care unit in my accompaniment. ESTIMATED BLOOD LOSS: 15 mL. REPLACEMENTS: Crystalloid. DRAINS: None. SPECIMENS: Hernia sac to Pathology. I, Wesley Mcnair MD, was physically present in the operating room from the time the patient was placed on the operating table until he was transferred to the post-anesthesia care unit in my accompaniment. MD VAISHALI Samson/[id number] MTDD
--- NOTE | 2019-04-02 19:39 | PATH ---
Surgical Pathology Report Patient Name: BOSTON MARIE Med. Rec. #: [id number] /Age/Gender: 1955 (Age: 63) / M Account: [id number] Location: [address] [place] [address]/[facility] Taken: 03/29/2019 Received: 03/31/2019 Reported: 04/02/2019 Physicians: Wesley Mcnair MD Specimen(s) Received HERNIA SAC Clinical History Right incarcerated inguinal hernia Final Diagnosis HERNIA SAC, RIGHT, INCARCERATED INGUINAL HERNIA REPAIR: HERNIA SAC. Electronically Signed Natalee Umanzor M.D. Gross Description Received in formalin labeled "hernia sac," is a 7.7 x 4.5 x 0.2 cm hart-almonte portion of fibromembranous tissue, consistent with a hernia sac. Medical Management Trainer sections are submitted in one cassette. /03/31/2019 saudi/03/31/2019
== END 2019-03-30 12:59 | disposition home or self-care (01) | DRG 228 ==
LOC: JER 15:40 → JERBED 20:14 → J6S 03-29 03:11 → UNDODISIN 03-30 11:50
PROVIDERS: ADMIT Internal Medicine; ATTEND Internal Medicine
PROC: 0YU50JZ Supplement Right Inguinal Region with Synthetic Substitute, Open Approach (ICD-10-PCS; principal; 2019-03-29 09:00)
DX: K40.30 Unilateral inguinal hernia, with obstruction, without gangrene, not specified as recurrent (principal); H10.9 Unspecified conjunctivitis; H26.9 Unspecified cataract
CPT/HCPCS: 36415; 71045-TC-FY; 74177-TC; 80048; 80053; 81003; 83605; 83735; 84100; 85025; 85610; 85730; 86850; 86900; 86901; 87086; 88302-TC; 93005; 93010; 94760; 99285-25; J7030